=== PATIENT | male | born 2000 | race Caucasian/White ===

== ENCOUNTER 2024-10-05 18:16 | Emergency (ER) | payer BC, SELFPAY ==
[2024-10-05] VITALS (7 sets, daily range): BP systolic 120–159; BP diastolic 65–107
[2024-10-05] MEDS: ADRENALIN 0.3 MG IM (18:59)
[2024-10-05] MEDS: DECADRON 10 MG IV (19:01)
[2024-10-05] MEDS: BENADRYL 25 MG IV ×2 (19:02→23:52)
[2024-10-05] MEDS: PEPCID 20 MG IV (19:02)
--- NOTE | 2024-10-05 19:03 | ED.GENMED ---
History of Present Illness
<Regi Zhu MD - Last Filed: 10/05/24 21:09>
General
Chief Complaint: Allergic Reaction
Source: patient
Time Seen by Provider: 10/05/24 18:45
History of Present Illness
History of Present Illness:
This pt is a 24 yr old male who developed throat irritation, facial swelling and hives, mild abd discomfort and chest discomfort. No f/c/back pain. He was itching but no longer. He had one epidosde of vomiting of 'red' but not blood. Feels about
same now.
Past History
<Regi Zhu MD - Last Filed: 10/05/24 21:09>
Past History
ED Past Medical History: None
ED Past Surgical History: None
Social History
Tobacco: Non-smoker
Alcohol: None
Drug: None
Phy Exam
<Regi Zhu MD - Last Filed: 10/05/24 21:09>
Physical Exam
Physical Exam:
GENERAL: Alert , in no apparent distress
EYE: pupils equal and reactive
NECK: Supple, no significant adenopathy.
ENT: o/p clr, mmm, voice clear, no trismus or drool, no lip/tongue swelling.
CARDIAC: Regular rate and rhythm .
LUNGS: Clear breath sounds bilaterally, no acute respiratory distress, no wheezes/rales/rhonchi
ABDOMEN: Soft, without focal tenderness, no r/g, no cvat
NEUROLOGICAL: Alert and oriented, no focal neuro deficits
SKIN: Warm and dry, skin intact. THere is mild facial flushing and swelling noted with scattered hives.
MUSCULOSKELETAL: No edema, well perfused.
PSYCH: Normal and appropriate interaction.
Course
<Regi Zhu MD - Last Filed: 10/05/24 21:09>
Orders/Labs/Results
Orders:
Orders
10/05/24 18:49
EKG [Electrocardiogram (*1)] Urgent
Reason for Study: Chest Pain
EKG- Treatment ONCE
10/05/24 18:51
Dexamethasone Sod Phosphate [Decadron] 20 mg .ROUTE .STK-MED ONE
Diphenhydramine [Benadryl] 50 mg .ROUTE .STK-MED ONE
EPINEPHrine PF [Adrenalin] 1 mg .ROUTE .STK-MED ONE
Famotidine [Pepcid] 20 mg .ROUTE .STK-MED ONE
10/05/24 18:59
EPINEPHrine PF [Adrenalin] 0.3 mg IM NOW STA
10/05/24 19:00
Dexamethasone Sod Phosphate [Decadron] 10 mg IV NOW STA
10/05/24 19:01
Cardiac Monitoring- Treatment ONCE
0.9% Sodium Chloride 1000 ml [Nss] 1,000 ml IV BOLUS
Dexamethasone Sod Phosphate [Decadron] 10 mg IV NOW STA
Diphenhydramine [Benadryl] 25 mg IV NOW STA
EPINEPHrine PF [Adrenalin] 0.3 mg IM NOW STA
Famotidine [Pepcid] 20 mg IV NOW STA
10/05/24 19:02
Diphenhydramine [Benadryl] 25 mg IV NOW STA
Famotidine [Pepcid] 20 mg IV NOW STA
10/05/24 22:34
EKG [Electrocardiogram (*1)] Urgent
Reason for Study: Chest Pain
EKG- Treatment ONCE
10/05/24 23:21
Diphenhydramine [Benadryl] 25 mg IV NOW STA
10/05/24 23:39
Complete Blood Count/With Diff Urgent
Comprehensive Metabolic Panel Urgent
Lipase Urgent
Abnormal Lab Results
10/05/24
23:39
WBC 12.2 H 10^3/uL
(4.8-10.8)
MCH 31.6 H pg
(27.0-31.0)
Absolute Neuts (auto) 11.5 H 10^3/uL
(1.4-6.5)
Absolute Lymphs (auto) 0.6 L 10^3/uL
(1.2-3.4)
Neutrophils % 94.4 H %
(42.2-75.2)
Lymphocytes % 4.6 L %
(20.5-51.1)
Monocytes % 0.5 L %
(1.7-9.3)
10/05/24 23:39
10/05/24 23:39
Vital Signs
Initial and Last Documented VS:
Initial Vital Signs
Temp Pulse Resp BP Pulse Ox
36.7 C 98 18 159/107 99
10/05/24 18:19 10/05/24 18:19 10/05/24 18:19 10/05/24 18:19 10/05/24 18:19
Last Documented Vital Signs
Temp Pulse Resp BP Pulse Ox
36.7 C 112 18 119/76 97
10/05/24 18:19 10/06/24 01:30 10/06/24 01:30 10/06/24 01:00 10/06/24 01:30
<Nicolas Castaneda MD - Last Filed: 10/06/24 02:59>
Orders/Labs/Results
Orders:
Orders
10/05/24 18:49
EKG [Electrocardiogram (*1)] Urgent
Reason for Study: Chest Pain
EKG- Treatment ONCE
10/05/24 18:51
Dexamethasone Sod Phosphate [Decadron] 20 mg .ROUTE .STK-MED ONE
Diphenhydramine [Benadryl] 50 mg .ROUTE .STK-MED ONE
EPINEPHrine PF [Adrenalin] 1 mg .ROUTE .STK-MED ONE
Famotidine [Pepcid] 20 mg .ROUTE .STK-MED ONE
10/05/24 18:59
EPINEPHrine PF [Adrenalin] 0.3 mg IM NOW STA
10/05/24 19:00
Dexamethasone Sod Phosphate [Decadron] 10 mg IV NOW STA
10/05/24 19:01
Cardiac Monitoring- Treatment ONCE
0.9% Sodium Chloride 1000 ml [Nss] 1,000 ml IV BOLUS
Dexamethasone Sod Phosphate [Decadron] 10 mg IV NOW STA
Diphenhydramine [Benadryl] 25 mg IV NOW STA
EPINEPHrine PF [Adrenalin] 0.3 mg IM NOW STA
Famotidine [Pepcid] 20 mg IV NOW STA
10/05/24 19:02
Diphenhydramine [Benadryl] 25 mg IV NOW STA
Famotidine [Pepcid] 20 mg IV NOW STA
10/05/24 22:34
EKG [Electrocardiogram (*1)] Urgent
Reason for Study: Chest Pain
EKG- Treatment ONCE
10/05/24 23:21
Diphenhydramine [Benadryl] 25 mg IV NOW STA
10/05/24 23:39
Complete Blood Count/With Diff Urgent
Comprehensive Metabolic Panel Urgent
Lipase Urgent
Abnormal Lab Results
10/05/24
23:39
WBC 12.2 H 10^3/uL
(4.8-10.8)
MCH 31.6 H pg
(27.0-31.0)
Absolute Neuts (auto) 11.5 H 10^3/uL
(1.4-6.5)
Absolute Lymphs (auto) 0.6 L 10^3/uL
(1.2-3.4)
Neutrophils % 94.4 H %
(42.2-75.2)
Lymphocytes % 4.6 L %
(20.5-51.1)
Monocytes % 0.5 L %
(1.7-9.3)
10/05/24 23:39
10/05/24 23:39
Vital Signs
Initial and Last Documented VS:
Initial Vital Signs
Temp Pulse Resp BP Pulse Ox
36.7 C 98 18 159/107 99
10/05/24 18:19 10/05/24 18:19 10/05/24 18:19 10/05/24 18:19 10/05/24 18:19
Last Documented Vital Signs
Temp Pulse Resp BP Pulse Ox
36.7 C 112 18 119/76 97
10/05/24 18:19 10/06/24 01:30 10/06/24 01:30 10/06/24 01:00 10/06/24 01:30
<Nicolas Castaneda MD - Last Filed: 10/06/24 02:59>
*Critical Care Note
Total Time (30-74mins, 75-104mins- exclusive of procedures): Not Applicable
<Regi Zhu MD - Last Filed: 10/05/24 21:09>
Update Note
Update Note:
Patient presents to the Emergency Department with hives, swelling, throat irritation
Number and Complexity of Problems Addressed at the Encounter
� Chronic conditions affecting care:
� Acute Exacerbation and/or Progression of Chronic Illness:
� Differential Diagnosis includes:but not limited to allergix rxn, anaphylactic rxn, drug eruption etc etc
Amount and/or Complexity of Data to be Reviewed and Analyzed
� I performed an independent evaluation of and my interpretation is:
EKG:
CT:
Xrays:
Laboratory Studies:
Other:
� Review of other/old records reveals:
� Clinical information was obtained by an independent historian:jodi
� Prescriptions/Medications Considered but not given:
� Further testing considered but not performed:
Risk of Complications and/or Morbidity or Mortality of Patient Management
� Social determinants of health affecting care:
� Discussion with other providers (PCP, Hospitalists, Consultants, etc):
� Escalation of care including admission/observation vs risk of discharge considered:7:57 PM redness almost completely resolved, patient no longer describing throat or chest complaints, walked to bathroom without difficulty,
smiling, no respiratory distress
ED Attending Note
<Regi Zhu MD - Last Filed: 10/05/24 21:09>
-
Portions of this chart may have been created with voice recognition software.� Occasional wrong word or��sound alike� substitutions may have occurred due to the inherent limitations of voice recognition software.
<Nicolas Castaneda MD - Last Filed: 10/06/24 02:59>
ED Attending Note
ED Attending Note:
UPDATE (Nicolas Castaneda MD)
I have seen and evaluated the patient after signout and reviewed all labs and imaging.
Focused HPI: 24-year-old male with no chronic medical issues no known allergies presents to the ER after apparent allergic reaction. Patient says that he ate chicken nuggets with a chili sauce at dinner that he has never had before. He says
shortly after eating this he became nauseous and vomited. He says he began to feel a tightness in his chest and throat, sore throat started getting some pruritus and redness in his face. He felt mild shortness of breath. He came to the ER for
evaluation. He says he has never had similar symptoms in the past. On arrival here he received IM epinephrine, IV Decadron, IV Benadryl, IV Pepcid�he reports improvement however over the past hour or so he feels he is starting to have some
tightness in his throat and flushing in his face again.
Physical exam: Awake and alert. Hypertensive mildly tachycardic. Normal respiratory rate, normal pulse ox. He does have some flushing of his face but no swelling of the lips or tongue, patent oropharynx. He has no stridor normal voice. His
lungs sound clear to auscultation bilaterally. Regular rhythm, tachycardia on cardiac auscultation. No rubs gallops or murmurs appreciated. Abdomen soft and nontender. No rash noted on the torso or extremities.
Medical Decision Makin-year-old male presents after apparent allergic reaction. He received medications as above with initial improvement now he feels his symptoms are starting to rebound slightly. He says not nearly as severe as initial.
Will give another dose of Benadryl�at this point he does not appear to need a repeat dose of epinephrine and will hold off especially given that he has been tachycardic since receiving epinephrine; he has no wheezing, no nausea/vomiting, no swelling
and only some mild itching/redness of the face and he says tiny tickle in the throat. He has no change in his voice or stridor. Will monitor very closely if symptoms progress may need repeat epinephrine. Will extend observation period.
Observed for an additional 3 hours and patient says symptoms have completely resolved he feels well. Stable for discharge. 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 EpiPen and prescription for prednisone provided. Spoke about return precautions all questions
answered.
Discharge Plan
Departure
Patient Disposition: Home (Routine Discharge)
Date of Disposition: 10/06/24
Time of Disposition: 01:32
Patient with high blood pressure during this ER visit?: Yes
Condition: Good
Discharge Problem:
Allergic reaction
Instructions: Allergic reaction - ED discharge instructions, BLOOD PRESSURE
Prescriptions:
New
epinephrine [EpiPen] 0.3 mg/0.3 mL auto-injector
0.3 mg IM ONCE PRN (Reason: shortness of breath) Qty: 2 0RF
prednisone 50 mg tablet
50 mg PO DAILY Qty: 4 0RF
Activity Restrictions/Additional Instructions:
PLEASE SEE AN MEDICAL DERMATOLOGIST PROMPTLY. IF YOU DEVELOP LIP/TONGUE SWELLING, TROUBLE BREATHING, THROAT TIGHTNESS, CHEST PAIN, REPEATED VOMITING OR OTHER WORRISOME SIGNS, GO TO THE ER IMMEDIATELY!
Interventions
Interventions:
*Risk Screen - Suicide Last Done: 10/05/24 18:21
*General Assessment Last Done: 10/05/24 18:21
*Neglect/Abuse Screening Last Done: 10/05/24 18:21
*ED- Fall Risk Assessment Last Done: 10/05/24 20:46
*ED COVID-19 Vaccine History Last Done: 10/05/24 20:46
*Nursing Disposition Last Done: 10/06/24 01:45
ED- Cardiac Assessment Last Done: 10/05/24 18:40
ED- Pulmonary Assessment Last Done: 10/05/24 18:40
ED-Skin Assessment Last Done: 10/05/24 18:40
Discharge Date and Time
Discharge Date/Time: 10/06/24 01:45
Print Language: SYRIAN
[2024-10-05] MEDS: NSS 1000 IV (19:04)
[2024-10-05 23:53] LABS: % Basophils 0.2 % (0-2); % Immature Granulocytes 0.3 % (0-0.5); % Lymphocytes 4.6 % (20.5-51.1); % Monocytes 0.5 % (1.7-9.3); % Neutrophils 94.4 % (42.2-75.2); Absolute Lymphocytes 0.6 10^3/uL (1.2-3.4); Absolute Monocytes 0.1 10^3/uL (0.1-0.6); Absolute Neutrophils 11.5 10^3/uL (1.4-6.5); Hematocrit 41.8 % (39.0-52.0); Hemoglobin 15.4 g/dL (13.0-18.0); Mean Corp Hgb Conc. 36.8 g/dL (33.0-37.0); Mean Corpuscular Hgb 31.6 pg (27.0-31.0); Mean Corpuscular Volume 85.7 fL (80.0-94.0); Mean Platelet Volume 10.1 fL (7.4-10.4); Nucleated Red Blood Cells % 0 % (-); Platelet Count 218 10^3/uL (130-400); Red Blood Cell Count 4.88 10^6/uL (4.70-6.10); Red Cell Dist. Width 11.6 % (11.5-14.5); White Blood Cell Count 12.2 10^3/uL (4.8-10.8)
[2024-10-06] VITALS: BP 134/81
[2024-10-06 00:08] LABS: ALT (SGPT) 25 U/L (0-50); AST (SGOT) 27 U/L (17-59); Albumin 4.5 g/dl (3.5-5.0); Alkaline Phosphatase 53 U/L (38-126); Blood Urea Nitrogen 12 mg/dl (9-20); Calcium 8.8 mg/dl (8.4-10.2); Carbon Dioxide 26 mmol/L (22-30); Chloride 102 mmol/L (98-107); Glucose 82 mg/dl (70-99); Lipase 30 U/L (23-300); Potassium 3.8 mmol/L (3.5-5.1); Sodium 139 mmol/L (135-145); Total Bilirubin 0.7 mg/dl (0.2-1.3); Total Protein 7.1 g/dl (6.3-8.2); eGFR > 60.00
[2024-10-06 00:49] VITALS: BP 132/92
[2024-10-06 01:00] VITALS: BP 119/76
== END 2024-10-06 01:45 | disposition home or self-care (01) ==
LOC: EMR 18:16
PROVIDERS: Emergency Medicine; EMERGENCY PHYSICIAN Emergency Medicine; FAMILY PHYSICIAN Physician Assistant Medical
DX: T78.1XXA Other adverse food reactions, not elsewhere classified, initial encounter (principal); X58.XXXA Exposure to other specified factors, initial encounter; R06.02 Shortness of breath; R07.89 Other chest pain; R21 Rash and other nonspecific skin eruption
CPT/HCPCS: 99284; 96374; 96375 ×2; 96361; 96376; 96372; 80053; 83690; 85025; 93005